=== PATIENT | female | born 2000 | race African-American/Black ===

== ENCOUNTER 2019-03-12 16:21 | Emergency (ER) | payer SELFPAY ==
[~2019-03-12] VITALS: Ht 165.1 cm; Wt 54.0 kg
[2019-03-12 16:35] VITALS: Ht 165.1 cm; Wt 54.0 kg
[2019-03-12 17:58] VITALS: BP 131/70
[2019-03-14 04:09] LABS: RAPID PLASMA REAGIN Non Reactive (Non Reactive)
== END 2019-03-12 17:58 | disposition home or self-care (01) ==
LOC: ED 16:21
PROVIDERS: Emergency Medicine
DX: N89.8 Other specified noninflammatory disorders of vagina (principal); R10.2 Pelvic and perineal pain; J45.909 Unspecified asthma, uncomplicated; Z88.5 Allergy status to narcotic agent; Z20.2 Contact with and (suspected) exposure to infections with a predominantly sexual mode of transmission
CPT/HCPCS: 87491; 87591; J0696

== ENCOUNTER 2019-04-18 18:14 | Emergency (ER) | payer SELFPAY ==
[~2019-04-18] VITALS: Ht 165.1 cm; Wt 54.4 kg
[2019-04-18 18:28] VITALS: BP 121/68; Ht 165.1 cm; Wt 54.4 kg
== END 2019-04-18 20:19 | disposition left against medical advice (07) ==
LOC: ED 18:14
DX: Z53.21 Procedure and treatment not carried out due to patient leaving prior to being seen by health care provider (principal)
CPT/HCPCS: 87491; 87591